=== PATIENT | male | born 1970 | race Caucasian/White ===

== ENCOUNTER 2019-01-02 10:14 | Emergency (ER) | payer OTHER ==
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
== END 2019-01-02 11:56 | disposition home or self-care (01) ==
LOC: LB.ED 10:14
DX: S16.1XXA Strain of muscle, fascia and tendon at neck level, initial encounter (principal); V91.82XA Other injury due to other accident to fishing boat, initial encounter
CPT/HCPCS: 72125; 99283-25